=== PATIENT | female | born 1980 | race Caucasian/White ===

== ENCOUNTER 2016-10-19 03:25 | Inpatient (IN) | payer SELFPAY ==
[~2016-10-19] VITALS: Ht 175.3 cm; Wt 91.2 kg
[2016-10-19 04:30] VITALS: BP 101/59; PULSE 74; RESP 18; Ht 175.3 cm; Wt 91.2 kg
[2016-10-19] MEDS: LACTATED RINGER'S 1,000 ML IV SCH ×2 (04:49→11:28)
[2016-10-19] MEDS ORDERED: BUTORPHANOL 2 MG INJ IV PRN (05:00)
[2016-10-19] MEDS ORDERED: MISOPROSTOL 200 MCG TAB PR PRN (05:00)
[2016-10-19] MEDS ORDERED: AMPICILLIN 2 GM/NS (PMX) 100 ML IV ONE (05:00)
[2016-10-19] MEDS ORDERED: IBUPROFEN 600 MG TAB PO PRN (05:00)
[2016-10-19] MEDS ORDERED: LACTATED RINGER'S 1,000 ML IV PRN (05:00)
[2016-10-19] MEDS ORDERED: OXYTOCIN 30 UNITS/LR 500 ML IV PRN (05:00)
[2016-10-19] MEDS ORDERED: METHYLERGONOVINE 0.2 MG INJ IM PRN (05:00)
[2016-10-19] MEDS ORDERED: LIDOCAINE 1% (MPF) 30 ML INJ INJ PRN (05:00)
[2016-10-19] MEDS ORDERED: CARBOPROST 250 MCG INJ IM PRN (05:00)
[2016-10-19] MEDS ORDERED: OXYTOCIN 30 UNITS/LR 500 ML IV SCH ×2 (05:00)
--- NOTE | 2016-10-19 05:11 | RADRPT ---
PROCEDURE: US OB. CLINICAL INDICATION: Size and dates TECHNIQUE: Multiple sonographic images of the pelvis were obtained. Transabdominal imaging only w as performed. The images were reviewed on a PACS workstation. COMPARISON: No prior studies are available for comparison. FINDINGS: There is a single live intrauterine gestation. Cardiac activity is present with 132 beats per minut e. position is cephalic. Measurements were made in order to determine age. The results are as follows: BPD = 9.86 cm HC = 35.00 cm AC = 38.43 cm FL = 8.45 cm. Estimated gestational age of approximately 40 weeks 4 days. The EFW = 4584 g, greater than 97 %ile. The placenta is anterior. There is no evidence for an abruption or placenta previa. There are no adnexal masses. IMPRESSION: 1. Single live intrauterine gestation of approximately 40 weeks 4 days, by ultrasound criteria. 2. The estimated weight is 4584 g, greater than 97 %ile. RPTAT: HH .Stella Slater MD, MD Date Time Electronically viewed and signed by .Stella Slater MD, on 10/19/2016 05:11 .G/
--- NOTE | 2016-10-19 05:25 | TRIAGE ---
OB Triage Datetime Report Generated by CPN: 10/19/2016 05:24 Datetime: 10/19/2016 05:24 Assessment Type: Admission Assessment Datetime: 10/19/2016 05:00 Stage of : OB Triage Labor Evaluation Frequency: Irregular with irritability Monitor Mode: External Duration (sec)2399: 20-100 Quality: Mild Pattern: Normal: <= 5 Contractions in 10 Minutes Resting Tone [place]: Relaxed Heart Rate FHR Baseline Rate: 125 Monitor Mode: External US Variability: Moderate 6-25 bpm Accelerations: 15X15 Decelerations: None Category: Category I Datetime: 10/19/2016 04:34 Stage of : OB Triage Datetime: 10/19/2016 04:17 Stage of : OB Triage Datetime: 10/19/2016 04:15 Vaginal Exam Dilatation (cms): 3.5 Effacement (%): 60 Station: -2 Exam By: CODY Nuno Vaginal Bleeding: None Cervix, Consistency: Moderate Cervix, Position: Posterior Presentation 'A': Cephalic Datetime: 10/19/2016 04:00 Stage of : OB Triage Labor Evaluation Frequency: Irregular with irritability Monitor Mode: External Duration (sec)2399: 20-80 Quality: Mild Pattern: Normal: <= 5 Contractions in 10 Minutes Resting Tone [place]: Relaxed Heart Rate FHR Baseline Rate: 120 Monitor Mode: External US Variability: Minimal - Undetectable to <=5 bpm Accelerations: 15X15 Decelerations: None Category: Category II Datetime: 10/19/2016 03:50 Membrane Status: Intact Datetime: 10/19/2016 03:37 Time of Arrival: 10/19/2016 05:23 EGA: 40.3 Arrived By: Ambulatory Arrived From: Home Datetime: 10/19/2016 03:36 Time of Arrival: 10/19/2016 03:12 Arrived By: Wheelchair Arrived From: Home Chief Complaint: Decreased movt Movement: Decreased Contractions: Irregular Rupture of Membranes: Denies Vaginal Bleeding: None Vaginal Discharge: Denies Recent Sexual Intercouse: Denies Abdominal Trauma: Not Applicable Patient Complaints: Other Additional Patient Complaints: Pt reported pain from uc's all day yesterday. Was 2cm in clinic. Th en states pain stopped @2300 _ baby stopped moving. Denies any pain at this time. Time Provider Notified: 10/19/2016 04:34 Provider Notified: Initial Plan: NST Datetime: 10/19/2016 03:34 Stage of : OB Triage Assessment Type: Triage Maternal Assessment Level of Consciousness: Fully Conscious DTR's/Clonus: DTRs 2+; No Clonus Headache: Denies Blurred Vision: No Respiratory Effort: Unlabored; Regular Rhythm; Equal Expansion Breath Sounds, Left: Clear and Equal Breath Sounds, Right: Clear and Equal Nausea/Vomiting: Denies RUQ Epigastric Pain: Denies Lower Extremities Edema: None (Annotations: No edema but redness on BLE) Degree: None Upper Extremities Edema: None Degree: None Facial Edema: None Temperature Route: Oral Fall Risk Assessment History of Falling: (0) No Secondary Diagnosis: (0) No Ambulatory Aid: (0) Bedrest/Nurse Assist IV Therapy: (0) No Gait: (0) Normal/Bedrest/Immobile Mental Status: (0) Oriented to Own Ability Fall Score: 0 Fall Risk Score Definition: No Risk: No action required Pain Assessment Pain Scale: 0 Pain Presence: None/Denies Pain Type: N/A Pain Assessment Comments: Pt states had pain all day yesterday but denies pain at this time Datetime: 10/19/2016 03:32 Stage of : OB Triage Monitor Mode: External Contraction Comments: [place] applied Heart Rate FHR Baseline Rate: 120 Monitor Mode: External US Comments: EFM applied
[2016-10-19 05:56] LABS: BASOPHILS % 0.2 % (0.0-2.0); EOSINOPHILS # 0.1 10^3/ul (0.0-0.5); EOSINOPHILS % 0.9 % (0.0-7.0); HEMOGLOBIN 11.7 g/dl (12.0-16.0); MEAN CORPUSCULAR HEMOGLOBIN 28.1 pg (29.0-33.0); MEAN CORPUSCULAR HGB CONC 33.5 g/dl (32.0-37.0); MEAN CORPUSCULAR VOLUME 83.9 fl (82.0-101.0); MONOCYTE # 0.9 10^3/ul (0.3-0.9); MONOCYTES % 11.1 % (0.0-11.0); NEUTROPHIL # 5.4 10^3/ul (1.6-7.5); NEUTROPHILS % 63.8 % (39.0-77.0); PLATELET COUNT 216 10^3/UL (140-440); RED BLOOD COUNT 4.16 10^6/ul (4.20-5.40); RED CELL DISTRIBUTION WIDTH 15.4 % (11.5-14.5); UNCORRECTED WBC 8.4 10^3/ul (4.8-10.8); WHITE BLOOD COUNT 8.4 10^3/ul (4.8-10.8)
[2016-10-19 06:13] LABS: INR 0.94; PROTIME 12.6 Sec (12.2-14.2)
[2016-10-19 06:14] LABS: PARTIAL THROMBOPLASTIN TIME 28.8 Sec (25.0-35.0)
[2016-10-19 06:24] LABS: CONDITION 1; LH ANALYZER COMMENTS 1; SUSPECT 1
[2016-10-19] MEDS ORDERED: AMPICILLIN 1 GM/NS (PMX) 50 ML IV SCH (09:00)
--- NOTE | 2016-10-19 14:23 | HP ---
Date/Time of Note Date/Time of Note DATE: 10/19/16 TIME: 14:20 OB - History Hx of Present Free Text/Dictation admitted in early labor Last Menstrual Period: Jan 10, 2016 Estimated Due Date: Oct 16, 2016 : 3 Para: 2 Care: Good Care Ultrasounds: Normal mid trimester US Obstetrical Complications: None Medical Complications: None Past Family/Social History * Past Medical, Surgical, Family and Obstetric Histories reviewed from chart. Blood Type: A- Rubella: immune RPR/VDRL: Negative GBS Status: Negative HBsAG: Negative OB Admission Exam Vital Signs Vital Signs Vital Signs Date Time Temp Pulse Resp B/P Pulse Ox O2 Delivery O2 Flow Rate FiO2 10/19/16 04:30 97.8 74 18 101/59 Room Air Physical Exam HEENT: WNL Heart: Rhythm Normal Lungs: Clear, Equal Abdomen: WNL Extremities: Normal Reflexes: Normal Cervical Dilatation: 4cm Effacement: 25% Station: -3 Membranes: Intact Heart Rate: 130's Accelerations: Accelerations Present Decelerations: No Decelerations Varibility: Moderate Contractions on Admission: 6-10 Minutes Apart Date/Time Contractions Began: 10/19/2015 Frequency of Contractions: Q 6=8 Duration: >45 seconds Intensity: Mild Last 72 hours Lab Results CBC & BMP 10/19/16 04:46 OB Assessment/Plan Other Assessment: post term labor pains EW::>4500 gm Plan: Expectant Management Other plan: proceed with natural labor consult patient re;complications LÁZARO ELLINGTON MD Oct 19, 2016 14:23
[2016-10-19] MEDS ORDERED: FENTAnyl 2MCG/ML-ROPIV 0.2% 100 ML ONE (20:33)
[2016-10-19] MEDS ORDERED: ONDANSETRON 4 MG INJ IV PRN (22:30)
[2016-10-19] MEDS ORDERED: NALOXONE (0.4 MG/ML) INJ IV PRN (22:30)
[2016-10-19] MEDS ORDERED: FENTAnyl 2MCG/ML-ROPIV 0.2% 100 ML BAG EPI SCH (22:30)
[2016-10-19] MEDS ORDERED: DIPHENHYDRAMINE 50 MG INJ IV PRN (22:30)
[2016-10-20] VITALS (9 sets, daily range): BP systolic 92–112; BP diastolic 52–77; PULSE 72–100; RESP 16–19
[2016-10-20] MEDS ORDERED: MINERAL OIL LIGHT 10 ML VIAL TOP ONE ×2 (01:30→02:00)
--- NOTE | 2016-10-20 03:19 | LDN ---
Date/Time of Note Date/Time of Note DATE: 10/20/16 TIME: 03:17 Delivery Summary I was present as the laborist and the patient was assigned for delivery to me. Patient had been managed by Dr. Matute during her labor course. suspected macrosomia based on us finding, Placenta Delivered: Spontaneously Meconium: none Perineum intact?: No Perineal laceration: 2 Perineal laceration repair: second degree perineal laceration repaired using 2-0 chromic Anesthesia type: Epidural Estimated blood loss: 100 Sponge & Needle done & correct: Yes All needle counts correct: Yes Any foreign bodies felt in the: No Problems: Delivery Information Sex Sex: male Apgars 1 Minute: 9 5 Minute: 9 Suctioning Nose & mouth suctioned at vinh: Yes Delee suction performed: Yes Umbilical Cord Umbilical cord with: 3 Vessels Cord presentations: no nuchal cord Cord Blood was obtained: Yes JAKOB LIMA MD Oct 20, 2016 03:19
[2016-10-20] MEDS: LACTATED RINGER'S 1,000 ML IV* SCH ×3 (03:20→19:20)
[2016-10-20] MEDS ORDERED: DIPHENHYDRAMINE 25 MG CAP PO PRN (03:30)
[2016-10-20] MEDS ORDERED: MISOPROSTOL 200 MCG TAB PR PRN (03:30)
[2016-10-20] MEDS ORDERED: ZOLPIDEM 5 MG TAB PO PRN (03:30)
[2016-10-20] MEDS ORDERED: OXYTOCIN 30 UNITS/LR 500 ML IV PRN (03:30)
[2016-10-20] MEDS ORDERED: WITCH HAZEL/GLYCERIN PAD PR PRN (03:30)
[2016-10-20] MEDS ORDERED: ONDANSETRON 4 MG INJ IV PRN (03:30)
[2016-10-20] MEDS ORDERED: ACETAMINOPHEN 325 MG TAB PO PRN (03:30)
[2016-10-20] MEDS ORDERED: ACETAMINOPHEN/CODEINE #3 TAB PO PRN (03:30)
[2016-10-20] MEDS ORDERED: morphine 2 MG INJ IV PRN (03:30)
[2016-10-20] MEDS ORDERED: LANOLIN 7 GM TUBE TOP PRN (03:30)
[2016-10-20] MEDS ORDERED: CARBOPROST 250 MCG INJ IM PRN (03:30)
[2016-10-20] MEDS ORDERED: METHYLERGONOVINE 0.2 MG INJ IM PRN (03:30)
--- NOTE | 2016-10-20 03:51 | DELSUM ---
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 Babies in Womb: 1 Attempted: No Labor Anesthesia: None LABOR INFORMATION Onset of Labor: 10/19/2016 04:15 Complete Dilatation: 10/20/2016 01:44 Oxytocin: N/A Group B Beta Strep: Negative Group B Beta Strep: Done, Result Unknown Antibiotics # of Doses: 0 Steroids Given: None Reason Steroids Not Administered: Not Applicable MEMBRANES Membranes Rupture Method: Artificial Rupture of Membranes: 10/19/2016 17:30 Length of Rupture (hr): 9.45 Amniotic Fluid Color: Clear Amniotic Fluid Color: Clear Amniotic Fluid Amount: Moderate Amniotic Fluid Amount: Moderate Amniotic Fluid Amount: Moderate Amniotic Fluid Odor: Normal Amniotic Fluid Odor: Normal STAGES OF LABOR Stage 1 hr: 21 Stage 1 min: 29 Stage 2 hr: 1 Stage 2 min: 13 Stage 3 hr: 0 Stage 3 min: 9 Total Time in Labor hr: 22 Total Time in Labor min: 51 VAGINAL DELIVERY Episiotomy: None Laceration Extension: Second Degree Laceration Type: Perineal Laceration Repair: Yes Initial Vag Sponge Count: 20 Final Vag Sponge Count: 20 Initial Vag Sharps Count: 1 Final Vag Sharps Count: 2 Sponge Count Correct: Yes Sharps Count Correct: Yes BABY A INFORMATION Infant Delivery Date/Time: 10/20/2016 02:57 Method of Delivery: Vaginal Born in Route : No : N/A Forceps: N/A Vacuum Extraction: N/A Shoulder Dystocia : No SHOULDER DYSTOCIA BABY A Infant Delivery Date/Time: 10/20/2016 02:57 PRESENTATION/POSITION BABY A Presentation: Cephalic Cephalic Presentation: Vertex Breech Presentation: N/A PLACENTA INFORMATION BABY A Placenta Delivery Time : 10/20/2016 03:06 Placenta Method of Delivery: Spontaneous Placenta Status: Delivered SCORES BABY A Heart Rate 1 min: >100 bpm Resp Effort 1 min: Good Cry Reflex Irritability 1 min: Cough/Sneeze/Pulls Away Muscle Tone 1 min: Active Motion Color 1 min: Body [place], Extremit Blue Resuscitation Effort 1 min: Tactile Stimulation SCORE 1 MIN: 9 Heart Rate 5 min: >100 bpm Resp Effort 5 min: Good Cry Reflex Irritability 5 min: Cough/Sneeze/Pulls Away Muscle Tone 5 min: Active Motion Color 5 min: Body [place], Extremit Blue Resuscitation Effort 5 min: Tactile Stimulation SCORE 5 MIN: 9 INFORMATION BABY A Gestational Age at Delivery: 40.4 Gestational Status: Full Term- 39- 40.6 Weeks Infant Outcome : Liveborn Infant Condition : Stable Sex: Male IDENTIFICATION/MEDS BABY A ID Band Number: [id number] ID Band Location: Right Arm; Left Leg Sensor Applied: Yes Sensor Number: [id number] Sensor Location : Cord Clamp Vitamin K Given : Not Given Erythromycin Given: Not Given WEIGHT/LENGTH BABY A Infant Birthweight (gm): 4345 Weight (lb): 9 Weight (oz): 9 Length (in): 20.50 Infant Length (cm): 52.07 CORD INFORMATION BABY A No. Cord Vessels: 3 Nuchal Cord : N/A Cord Blood Taken: Yes Suction: Mouth; Nose ASSESSMENT BABY A Complications: None Physical Findings at Delivery: Within Normal Limits Infant Respirations: Appears Normal Sleeve Presser Operator/ALS Called : No Infant Care By: Stephanie ROSS Transferred To: Remains with Mother
--- NOTE | 2016-10-20 03:54 | DELSUM ---
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 Babies in Womb: 1 Attempted: No Labor Anesthesia: None LABOR INFORMATION Reason for Induction: Not Applicable Onset of Labor: 10/19/2016 04:15 Complete Dilatation: 10/20/2016 01:44 Oxytocin: N/A Group B Beta Strep: Negative Group B Beta Strep: Done, Result Unknown Antibiotics # of Doses: 0 Steroids Given: None Reason Steroids Not Administered: Not Applicable MEMBRANES Membranes Rupture Method: Artificial Rupture of Membranes: 10/19/2016 17:30 Length of Rupture (hr): 9.45 Amniotic Fluid Color: Clear Amniotic Fluid Color: Clear Amniotic Fluid Amount: Moderate Amniotic Fluid Amount: Moderate Amniotic Fluid Amount: Moderate Amniotic Fluid Odor: Normal Amniotic Fluid Odor: Normal STAGES OF LABOR Stage 1 hr: 21 Stage 1 min: 29 Stage 2 hr: 1 Stage 2 min: 13 Stage 3 hr: 0 Stage 3 min: 9 Total Time in Labor hr: 22 Total Time in Labor min: 51 VAGINAL DELIVERY Episiotomy: None Laceration Extension: Second Degree Laceration Type: Perineal Laceration Repair: Yes Initial Vag Sponge Count: 20 Final Vag Sponge Count: 20 Initial Vag Sharps Count: 1 Final Vag Sharps Count: 2 Sponge Count Correct: Yes Sharps Count Correct: Yes BABY A INFORMATION Delivery Date/Time: 10/20/2016 02:57 Method of Delivery: Vaginal Born in Route : No : N/A Forceps: N/A Vacuum Extraction: N/A Shoulder Dystocia : No SHOULDER DYSTOCIA BABY A Infant Delivery Date/Time: 10/20/2016 02:57 PRESENTATION/POSITION BABY A Presentation: Cephalic Cephalic Presentation: Vertex Breech Presentation: N/A PLACENTA INFORMATION BABY A Placenta Delivery Time : 10/20/2016 03:06 Placenta Method of Delivery: Spontaneous Placenta Status: Delivered SCORES BABY A Heart Rate 1 min: >100 bpm Resp Effort 1 min: Good Cry Reflex Irritability 1 min: Cough/Sneeze/Pulls Away Muscle Tone 1 min: Active Motion Color 1 min: Body [place], Extremit Blue Resuscitation Effort 1 min: Tactile Stimulation SCORE 1 MIN: 9 Heart Rate 5 min: >100 bpm Resp Effort 5 min: Good Cry Reflex Irritability 5 min: Cough/Sneeze/Pulls Away Muscle Tone 5 min: Active Motion Color 5 min: Body [place], Extremit Blue Resuscitation Effort 5 min: Tactile Stimulation SCORE 5 MIN: 9 INFORMATION BABY A Gestational Age at Delivery: 40.4 Gestational Status: Full Term- 39- 40.6 Weeks Infant Outcome : Liveborn Condition : Stable Sex: Male IDENTIFICATION/MEDS BABY A ID Band Number: [id number] ID Band Location: Right Arm; Left Leg Sensor Applied: Yes Sensor Number: [id number] Sensor Location : Cord Clamp Vitamin K Given : Not Given Erythromycin Given: Not Given WEIGHT/LENGTH BABY A Birthweight (gm): 4345 Weight (lb): 9 Infant Weight (oz): 9 Length (in): 20.50 Infant Length (cm): 52.07 CORD INFORMATION BABY A No. Cord Vessels: 3 Nuchal Cord : N/A Cord Blood Taken: Yes Infant Suction: Mouth; Nose ASSESSMENT BABY A Infant Complications: None Physical Findings at Delivery: Within Normal Limits Infant Respirations: Appears Normal [place] Pen Nibs Inspector/ALS Called : No Care By: Stephanie ROSS Transferred To: Remains with Mother
--- NOTE | 2016-10-20 03:54 | OPRPT ---
Intraop Record Datetime Report Generated by CPN: 10/20/2016 03:53 Datetime: 10/19/2016 04:29 Drug Allergies/Reactions: No Known Allergy (10/19/2016) Datetime: 10/19/2016 03:37 Drug Allergies/Reactions: Denies Food Allergies/Reactions: Denies Latex Allergies/Reactions: No Latex Allergies
[2016-10-20] MEDS: IBUPROFEN 600 MG TAB PO SCH ×4 (06:00→23:49)
[2016-10-20] MEDS: SENNA/DOCUSATE NA (8.6MG/50MG) TAB PO SCH ×2 (09:36→21:54)
[2016-10-20] MEDS ORDERED: CEPHALEXIN 500 MG CAP PO SCH (14:30)
[2016-10-20] MEDS: CEPHALEXIN 500 MG CAP PO SCH ×2 (18:53→23:49)
[2016-10-21] VITALS: BP 100/64; PULSE 86; RESP 17
[2016-10-21 03:50] VITALS: BP 106/71; PULSE 71; RESP 18
[2016-10-21] MEDS: CEPHALEXIN 500 MG CAP PO SCH ×2 (05:36→12:18)
[2016-10-21] MEDS: IBUPROFEN 600 MG TAB PO SCH ×2 (05:36→12:16)
[2016-10-21 07:04] LABS: HEMATOCRIT 32.5 % (37.0-47.0); HEMOGLOBIN 10.9 g/dl (12.0-16.0)
[2016-10-21 08:27] VITALS: BP 105/60; PULSE 64; RESP 18
[2016-10-21] MEDS: SENNA/DOCUSATE NA (8.6MG/50MG) TAB PO SCH (09:00)
--- NOTE | 2016-10-21 13:12 | DS ---
Date/Time of Note Date/Time of Note DATE: 10/21/16 TIME: 13:11 Obstetrical Discharge Record Final Diagnosis Final Diagnosis: Term delivered Vaginal Delivery Obstetrical Delivery: Spontaneous, Laceration, Repaired Condition on Discharge Physical Assessment Last Vitals: see nurses notes Voiding: Yes Bowel Movement: Yes Breast: Soft, non-tender, Filling Fundus: Firm Abdomen and Incision: soft BS + Episiotomy: NA perineum: healing Calf Tenderness: No Patient Condition: Good LÁZARO ELLINGTON MD Oct 21, 2016 13:12
--- NOTE | 2016-10-21 13:17 | PD.PPDC ---
DIRECTOR AIRPORT Discharge Instruction Provider Information Physician Information 36 y/o female had vaginal delivery Diagnosis Final Diagnosis: S/P vaginal delivery Condition Patient Condition: Good Diet Diet: Resume Regular Diet Activity/Restrictions Activity: Normal Activity May Shower Restrictions: Nothing in the Vagina Return to Work or School: Dec 05, 2016 Follow-up Follow-up with Physician: 4, Week/Weeks Provider Information: in clinic Return to clinic for CORNETIST Instructions: Excessive Vaginal Bleeding OB Instructions: Breast Tenderness Depression LÁZARO ELLINGTON MD Oct 21, 2016 13:17
[2016-10-21] MEDS ORDERED: IBUP-1542 PO (13:18)
[2016-10-21 15:56] VITALS: BP 106/56; PULSE 56; RESP 18
[2016-10-22] MEDS ORDERED: MEASLES,MUMPS,RUBELLA VACCINE INJ SC* ONE (09:00)
[2016-10-22] MEDS ORDERED: DIPHTH/TET/ACEL PERTUSS (ADULT) 0.5 ML VIAL IM* ONE (09:00)
[2016-10-22] MEDS ORDERED: VARICELLA VACCINE LIVE/PF 1,350 UNIT/0.5 ML ML SC* ONE (09:00)
== END 2016-10-21 18:15 | disposition home or self-care (01) | DRG 775 ==
LOC: L-D 03:25 → OBT 03:25 → L-D 05:00 → OBT 05:00 → L-D 06:21 → PP1 10-20 05:16
PROVIDERS: ADMIT Obstetrics & Gynecology; ATTEND Obstetrics & Gynecology
PROC: 10E0XZZ Delivery of Products of Conception, External Approach (ICD-10-PCS; principal; 2016-10-20)
PROC: 0KQM0ZZ Repair Perineum Muscle, Open Approach (ICD-10-PCS; 2016-10-20)
PROC: 10907ZC Drainage of Amniotic Fluid, Therapeutic from Products of Conception, Via Natural or Artificial Opening (ICD-10-PCS; 2016-10-20)
DX: O48.0 Post-term pregnancy (principal); O70.1 Second degree perineal laceration during delivery; Z3A.40 40 weeks gestation of pregnancy; Z37.0 Single live birth
CPT/HCPCS: 36415; 62319; 76815; 85014; 85018; 85025; 85610; 85730; 86592; 86850; 86870; 86885; 86900; 86901; 87340; 96360; G0463; J0290; J2590; J3010; J7120

== ENCOUNTER 2017-02-14 11:42 | Day surgery (SDC) | payer MEDICAID ==
[~2017-02-14] VITALS: Ht 170.2 cm; Wt 77.9 kg
[2017-02-14] VITALS (13 sets, daily range): BP systolic 90–131; BP diastolic 50–57; PULSE 60–73; RESP 11–21; Ht 170.2 cm; Wt 77.9 kg
[~2017-02-14 11:42] MED LIST: EPHEDrine SULFATE 50 MG/5 ML SYG ONE; IBUP-1542 PO
[2017-02-14 13:12] LABS: ADD SCAN DIFF NO
[2017-02-14 13:19] LABS: BASOPHILS % 0.5 % (0.0-2.0); EOSINOPHILS # 0.2 10^3/ul (0.0-0.5); EOSINOPHILS % 2.4 % (0.0-7.0); HEMATOCRIT 35.6 % (37.0-47.0); HEMOGLOBIN 11.6 g/dl (12.0-16.0); LYMPHOCYTES # 2.1 10^3/ul (0.8-2.9); LYMPHOCYTES % 31.4 % (15.0-51.0); MEAN CORPUSCULAR HEMOGLOBIN 28.4 pg (29.0-33.0); MEAN CORPUSCULAR HGB CONC 32.6 g/dl (32.0-37.0); MEAN CORPUSCULAR VOLUME 87.3 fl (82.0-101.0); MEAN PLATELET VOLUME 11.7 fl (7.4-10.4); MONOCYTE # 0.5 10^3/ul (0.3-0.9); MONOCYTES % 7.2 % (0.0-11.0); NEUTROPHIL # 3.9 10^3/ul (1.6-7.5); NEUTROPHILS % 58.2 % (39.0-77.0); PLATELET COUNT 236 10^3/UL (140-415); RED BLOOD COUNT 4.08 10^6/ul (4.20-5.40); RED CELL DISTRIBUTION WIDTH 15.2 % (11.5-14.5); WHITE BLOOD COUNT 6.7 10^3/ul (4.8-10.8)
[2017-02-14] MEDS ORDERED: LACTATED RINGER'S 1,000 ML IV SCH (15:30)
--- NOTE | 2017-02-14 16:48 | HP ---
Date/Time of Note Date/Time of Note DATE: 02/14/17 TIME: 16:45 Assessment/Plan VTE Prophylaxis VTE Prophylaxis Intervention: ambulation Lines/Catheters IV Catheter Type (from Nrsg): Peripheral IV Assessment/Plan Assessment/Plan multiparity with desire for sterilization will proceed with laparoscopic tubal fulguration HPI/ROS Admit Date/Time Admit Date/Time 02/14/2017 Hx of Present Illness 36 y/o female P3 admitted for elective sterilization via laparoscopy ROS unremarkable Constitutional: improved, no complaints Eyes: no complaints ENT: no complaints Respiratory: no complaints Cardiovascular: no complaints Gastrointestinal: no complaints Genitourinary: no complaints Musculoskeletal: no complaints Skin: no complaints Neurologic: no complaints Endocrine: no complaints Lymphatic: no complaints Psychological: nl mood/affect, no complaints Immunologic: no complaints PMH/Family/Social Past Medical History Medical History: no pertinent history Past Surgical History Past Surgical Hx: no surgical history Family History Significant Family History: no pertinent family hx Social History Alcohol Use: none Smoking Status: Never smoker Drug Use: none Exam/Review of Systems Vital Signs Vitals Vital Signs Date Time Temp Pulse Resp B/P Pulse Ox O2 Delivery O2 Flow Rate FiO2 02/14/17 13:00 97.4 72 16 110/57 97 Room Air Exam Constitutional: alert, oriented, well developed Psych: nl mood/affect, no complaints Head: atraumatic, normocephalic Eyes: EOMI, PERRL, nl conjunctiva, nl lids, nl sclera ENMT: nl external ears & nose, nl lips & teeth, nl nasal mucosa & septum Neck: non-tender, supple Respiratory: clear to auscultation, normal air movement Cardiovascular: nl pulses, regular rate and rhythm Gastrointestinal: nl liver, spleen, non-tender, soft Musculoskeletal: nl extremities to inspection Extremities: normal pulses Neurological: FINISH PHOTOGRAPHER II-XII intact, nl mental status, nl speech, nl strength Skin: nl turgor, No rash or lesions Lymph: nl lymph nodes Labs Result Diagram: 02/14/17 1301 Medications Medications Current Medications Lactated Ringer's (Lr) 1,000 ml @ 125 mls/hr Q8H IV ; Start 02/14/17 at 15:30 LÁZARO ELLINGTON MD February 14, 2017 16:48
[2017-02-14] MEDS ORDERED: PROPOFOL 20 ML ONE (17:00)
[2017-02-14] MEDS ORDERED: MIDAZOLAM 1 MG/ML 2 ML INJ ONE (17:00)
[2017-02-14] MEDS ORDERED: METOCLOPRAMIDE 10 MG INJ ONE (17:00)
[2017-02-14] MEDS ORDERED: ROCURONIUM 50 MG INJ ONE (17:00)
[2017-02-14] MEDS ORDERED: ROPIVACAINE 0.5 % 30 ML VIAL ONE (17:05)
[2017-02-14] MEDS ORDERED: KETOROLAC 30 MG INJ ONE (17:05)
[2017-02-14] MEDS ORDERED: BUPIVACAINE 0.25% (MPF) 30 ML INJ ONE (17:21)
[2017-02-14] MEDS ORDERED: BUPIVACAINE 0.25%/EPI (SDV) 30 ML INJ ONE (17:24)
[2017-02-14] MEDS ORDERED: CEFAZOLIN 1 GM INJ ONE (17:27)
[2017-02-14] MEDS ORDERED: GLYCOPYRROLATE 0.4 MG INJ ONE (18:28)
[2017-02-14] MEDS ORDERED: NEOSTIGMINE 3 MG/3 ML SYRINGE ONE (18:28)
[2017-02-14] MEDS ORDERED: DIPHENHYDRAMINE 50 MG INJ IV PRN (18:30)
[2017-02-14] MEDS ORDERED: OXYCODONE/ACETAMINOPHEN (5/325) TAB PO PRN ×2 (18:30)
[2017-02-14] MEDS ORDERED: ONDANSETRON 4 MG INJ IV PRN (18:30)
[2017-02-14] MEDS ORDERED: MEPERIDINE 25 MG INJ IV PRN (18:30)
[2017-02-14] MEDS ORDERED: HYDROmorphONE (0.2 MG/ML) 10ML SYG IV PRN ×3 (18:30)
[2017-02-14] MEDS ORDERED: METOCLOPRAMIDE 10 MG INJ IV PRN (18:30)
--- NOTE | 2017-02-14 18:38 | OPR ---
Operative Report Planned Procedure Procedure date February 14, 2017 Procedure(s) Laparoscopic tubal fulguration Performed by: LÁZARO ELLINGTON MD Anesthesiologist: RONEY MORRIS MD Pre-procedure diagnosis multiparity with desire for sterilization Anesthesia Type: general Procedure Description The patient was placed on the OR table in the supine position. General anesthesia was induced. The patient was turned into lithotomy position for vaginal and laparoscopic procedure specifically. Perineal, vaginal, and abdominal area were then prepped with Betadine and draped for a usual laparoscopic procedure and a vaginal procedure. A Guevara catheter was then inserted into urinary bladder under aseptic condition in operating room and under satisfactory anesthesia, a small speculum was inserted into vagina. Anterior lip of the cervix was secured with a tenaculum. Cervix was brought down to operative field. It was progressively dilated to #6 [place]. A HUMI elevator was inserted into cervical canal and afterwards uterine cavity. After insufflation of the tube all the other instruments were removed from vaginal cavity. After changing gloves, turning to abdominal side, a small incision was placed just below belly button 0.5 cm in length. A 0.5 cm trocar was introduced inside the incision. The trocar was blunt and pointing toward the uterine dome. The trocar was easily inserted inside the abdominal. A laparoscope was then inserted into the abdominal cavity, making sure the correct cavity was entered. Intra-abdominal cavity was insufflated with CO2. Under direct visualization a small incision was made a 0.5 cm in length about 2 to 3 fingerbreadths above and parallel to the symphysis pubis. A 0.5 cm trocar was then introduced inside the incision. Under direct visualization the second probe was also inserted into abdominal cavity easily. The uterus and fallopian tubes were easily identified. Right fallopian tube was approached first and at least 5 cm of the tube was adequately fulgurated, making sure no live tissue was left in between. The same procedure was done on the left side. Serious care was taken to avoid bowel, bladder, or other intra-abdominal organ injury. At this point, procedure was terminated. The trocar incision sites from inside the abdomen on either side were observed. No bleeding was observed. After removing the laparoscope, the abdomen was desufflated to its normal position. Afterwards, all of the trocar sleeves were removed. Abdominal incisions were closed using 4 0 Monocryl subcuticular stitch and Dermabond. The HUMI was then discontinued. Also, Guevara was taken out. The patient was returned to supine position. Estimated blood loss was less than 5 mL. The patient tolerated the procedure very well and was transferred to postanesthesia recovery room in stable and good condition. Post-Procedure Post-procedure diagnosis S/P laparoscopic BTL Findings: Normal R and L fallopian tubes Specimen removed: No Complications: None Pt Condition post procedure: stable Disposition: PACU Physician Certification I, the undersigned physician, hereby certify that I have discussed the procedure described in this consent form with this patient (or the patient's legal leather goods sales representative), including: * The risk and benefits of the procedure; * Any adverse reactions that may reasonably be expected to occur; * Any alternative efficacious methods of treatment which may be medically viable ; * The potential problems that may occur during recuperation; * Potential for blood transfusion and associated risks/benefits; and * Any research or economic interest I may have regarding this treatment. I further certify that the patient/legally responsible person was encouraged to ask question and that all questions were answered. LÁZARO ELLINGTON MD February 14, 2017 18:38
[2017-02-14] MEDS ORDERED: BUTORPHANOL 2 MG INJ IV ONE (19:00)
[2017-02-14] MEDS ORDERED: DOXYCYCLINE 100 MG TAB PO ONE (19:00)
== END 2017-02-14 20:28 | disposition home or self-care (01) ==
LOC: SDS 11:42
PROVIDERS: ATTEND Obstetrics & Gynecology
DX: Z30.2 Encounter for sterilization (principal)
CPT/HCPCS: 58670; 84703; 85025; 86850; 86900; 86901; J0595; J0690; J1885; J2175; J2250; J2710; J2765; J2795; Z7512; Z7610